=== PATIENT | male | born 1975 | race African-American/Black ===

== ENCOUNTER 2022-06-15 22:14 | Emergency (ER) | payer MEDICAID, OTHER ==
[~2022-06-15] VITALS: Ht 188 cm; Wt 122.0 kg
[2022-06-15 22:14] VITALS: BP 131/47
== END 2022-06-16 09:46 | disposition left against medical advice (07) ==
LOC: ER 22:14 → EDBD 22:14 → ER 06-16 04:17
DX: F41.9 Anxiety disorder, unspecified (principal); Z53.21 Procedure and treatment not carried out due to patient leaving prior to being seen by health care provider